=== PATIENT | male | born 1975 | race Caucasian/White ===

== ENCOUNTER 2018-02-08 01:19 | Emergency (ER) | END 2018-02-08 04:28 | disposition home or self-care (01) ==

== ENCOUNTER 2019-03-14 22:38 | Emergency (ER) | payer MEDICAID ==
[~2019-03-14] VITALS: Ht 170.2 cm; Wt 87.4 kg
[~2019-03-14 22:38] MED LIST: ACYC800T5 PO; ALBU5SOL4 INH; ATOR10TA65 PO; DOCU-144 PO; IBUP-1542 PO; LORA10CA PO; NORVIR; NP.1OP15; TS100V10; [UNRECOGNIZED DRUG - OTHER]; [UNRECOGNIZED DRUG - OTHER]
[2019-03-14 22:55] VITALS: BP 154/85; PULSE 100; RESP 18; Ht 170.2 cm; Wt 87.4 kg
--- NOTE | 2019-03-15 02:05 | ERD ---
ER Documentation Chief Complaint Chief Complaint possible insect bite to right shoulder around 5 pm HPI 44-year-old male presents emergency department complaining of rash to the right upper back which he believes is secondary to spider bite which began at 5 PM today. He reports a tingling sensation that radiates from the rash down his right arm. He tried no medication for relief of symptoms. He denies any fevers, chills, or other symptoms at this time. He does report increased stress in his life lately. He is unsure whether he has history of chickenpox. ROS All systems reviewed and are negative except as per history of present illness. Medications Home Meds Active Scripts Acyclovir* (Zovirax*) 800 Mg Tablet, 800 MG PO 5 TIMES DAILY for 7 Days, TAB Prov:OH STEPHENSON PA-C 03/15/19 Docusate Sodium* (Colace*) 100 Mg Capsule, 100 MG PO TID, #30 CAP Prov:OH AARON 02/08/18 Reported Medications [Rayadaz] No Conflict Check 02/15/14 [Truvara] No Conflict Check 02/15/14 [Norvir] No Conflict Check 02/15/14 Naphazoline Hcl* (Naphcon*) 0.012% Ophth - 15 ML Drops, 2 DROP Q12H PRN 02/15/14 Atorvastatin Calcium (Atorvastatin Calcium) 10 Mg Tablet, PO DAILY 02/15/14 Ibuprofen* (Motrin*) 600 Mg Tab, PO BID 02/15/14 Testosterone Cypionate* (Depo-Testosterone*) 100 Mg/Ml Vial 02/15/14 Loratadine* (Claritin*) 10 Mg Capsule, PO DAILY PRN 02/15/14 Albuterol* (Proventil* Neb) 0.5% Neb, 2 PUFF INH 02/15/14 Allergies Allergies: Coded Allergies: No Known Allergy (Unverified , 02/15/14) PMhx/Soc Anesthesia Reaction: No Hx Neurological Disorder: No Hx Respiratory Disorders: No Hx Cardiac Disorders: No Hx Psychiatric Problems: No Hx Miscellaneous Medical Probl: Yes (HIV, HLD) Hx Alcohol Use: Yes (RECREATIONAL) Hx Substance Use: No Hx Tobacco Use: No Smoking Status: Never smoker FmHx Family History: No diabetes Physical Exam Vitals Vital Signs Date Temp Pulse Resp B/P (MAP) Pulse Ox O2 O2 Flow FiO2 Time Delivery Rate 03/14/19 98.2 100 18 154/85 99 22:55 (108) Physical Exam Const: No acute distress Head: Atraumatic Eyes: Normal Conjunctiva ENT: Normal External Ears, Nose and Mouth. Neck: Full range of motion. No meningismus. Resp: Clear to auscultation bilaterally Cardio: Regular rate and rhythm, no murmurs Skin: Vesicular type rash to the right upper back following a dermatomal pattern. Does not cross the midline. No significant surrounding erythema. No lymphatic streaking. Back: No midline or flank tenderness Ext: No cyanosis, or edema Neur: Awake and alert Psych: Normal Mood and Affect Procedures/MDM 44-year-old male presents with signs and symptoms most consistent with shingles without evidence of complication. Patient's vital signs are stable and he is nontoxic and well-appearing. Patient's dermatologic symptoms have stabilized while they have been evaluated in the department and are appropriate for outpatient work up. No evidence of Montez Alverto's syndrome, Kawasaki's, or sepsis. Patient's blood pressure was elevated (>120/80) but appears stable without evidence of hypertension emergency or urgency. The patient is to follow-up and pursue outpatient monitoring and therapy with their primary care physician within 1 week and return immediately if they have any new, worsening, or concerning symptoms. Departure Diagnosis: Primary Impression: Rash and other nonspecific skin eruption Condition: Fair Patient Instructions: Shingles (Herpes Zoster) [facility] Usted se dallas hecho un examen mdico de control que le indica que no est en [place] condicin que requiera tratamiento urgente en el Departamento de Emergencia. Un estudio ms profundo y el tratamiento de santos condicin pueden esperar sin ningn riesgo hasta que usted sea atendida/o en el consultorio de santos mdico o ang[place] clnica. Es responsabilidad suya arreglar ang[place] rudy para el seguimiento del shashank. MANEJO DE CONDICIONES NO URGENTES EN EL FUTURO 1) Si usted tiene un mdico de atencin primaria: Usted debera llamar a santos mdico de atencin primaria antes de venir al departamento de emergencia. Despus de las horas de consultorio, santos doctor o santos asociado/a est disponible por telfono. El mdico o enfermero de gurpreet en el servicio telefnico puede asesorarle por shalom medio para atender el problema, o shashank contrario se puede programar ang[place] rudy. 2) Si usted no tiene un mdico de atencin primaria: Llame al mdico o clnica de referencia que aparece abajo toñito las horas de consultorio para hacer [place] rudy para que le vean. CLINICAS: [place] [id number] [phone] [facility] [phone] [address] [place] [address] [phone] [place] [address] [phone] [place] [address] [phone] [facility]. [phone] [address] Additional Instructions: Llame al doctor MAANA y genny [place] RUDY PARA DENTRO DE 1-2 BRIZUELA.Dgale a la secretaria que nosotros le instruimos hacer esta rudy.Avise o llame si santos condicin se empeora antes de la rudy. Regresa aqui si peor o no mejor. OH STEPHENSON PA-C Mar 15, 2019 02:05
== END 2019-03-15 02:00 | disposition home or self-care (01) ==
LOC: FTE 22:38
DX: R21 Rash and other nonspecific skin eruption (principal); Z21 Asymptomatic human immunodeficiency virus [HIV] infection status
CPT/HCPCS: 99283